=== PATIENT | male | born 1960 | race Caucasian/White ===

== ENCOUNTER 2019-07-16 11:04 | Emergency (ER) | payer BC ==
[~2019-07-16] VITALS: Ht 182.9 cm; Wt 104.3 kg
[2019-07-16 11:04] VITALS: BP 133/96
[2019-07-16] MEDS ORDERED: SULF1TAB24 PO (11:27)
[2019-07-16] MEDS ORDERED: MELO7.5T29 PO (11:27)
--- NOTE | 2019-07-16 11:27 | PHYS DOC ---
Past History Past Medical History: Hypertension Past Surgical History: Cholecystectomy Smoking: Non-smoker Alcohol Use: Heavy Drug Use: None Adult General Chief Complaint Chief Complaint: ABDOMINAL PAIN HPI HPI Patient is a 38-year-old male presents complaining of redness and discomfort just above his bellybutton. This is been present for approximately the past week. Getting worse over time. He ran a fever yesterday but did not take his temperature. There has been some drainage from this area of redness. He is been home treating with Neosporin ointment. Discomfort is waxing and waning, currently mild in intensity. No specific pain medicines have been taken. Patient is approximately 0.5 weeks post the loss of his father. Father from congestive heart failure. Patient is denying any chest pain or pal pitations.[] Review of Systems Review of Systems Constitutional: Denies fever or chills [] Eyes: Denies change in visual acuity, redness, or eye pain [] HENT: Denies nasal congestion or sore throat [] Respiratory: Denies cough or shortness of breath [] Cardiovascular: No chest pain or palpitations[] GI: Denies nausea, vomiting, bloody stools or diarrhea, see history of present illness [] : Denies dysuria or hematuria [] Musculoskeletal: Denies back pain or joint pain [] Integument: The history of present illness[] Neurologic: Denies headache, focal weakness or sensory changes [] Endocrine: Denies polyuria or polydipsia [] All other systems were reviewed and found to be within normal limits, except as documented in this note. Allergies Allergies Allergies Coded Allergies Type Severity Reaction Last Updated Verified No Known Drug Allergies 07/16/19 No Physical Exam Physical Exam Constitutional: Well developed, well nourished, no acute distress, non-toxic appearance. [] HENT: Normocephalic, atraumatic, bilateral external ears normal, oropharynx moist, no oral exudates, nose normal. [] Eyes: PERRLA, EOMI, conjunctiva normal, no discharge. [] Neck: Normal range of motion, no tenderness, supple, no stridor. [] Cardiovascular:Heart rate regular rhythm, no murmur [] Lungs & Thorax: Bilateral breath sounds clear to auscultation [] Abdomen: Bowel sounds normal, soft, no tenderness other than the skin exam noted below, no masses, no pulsatile masses. [] Skin: Warm, dry, erythema and induration superior to patient's umbilicus, approximately 3 cm in diameter for the erythema, 1.5 cm for the induration. There is no drainable abscess appreciated. No discharge. No petechiae, no ulcers.. [] Back: No tenderness, no CVA tenderness. [] Extremities: No tenderness, no cyanosis, no clubbing, ROM intact, no edema. [] Neurologic: Alert and oriented X 3, normal motor function, normal sensory function, no focal deficits noted. [] Psychologic: Affect normal, judgement normal, mood normal. [] EKG EKG [] Radiology/Procedures Radiology/Procedures [] Course & Med Decision Making Course & Med Decision Making Pertinent Labs and Imaging studies reviewed. (See chart for details) ED course: Patient arrived, was placed in bed, and tolerated exam well. Findings were discussed with patient and his who voiced understanding. All question s were answered. He was discharged in improved condition. Medical decision making: Patient appears to have cellulitis. No abscess appreciated. Nontoxic patient. No toxic epidermal necrolysis, no staph scalded skin syndrome, no Sanchez-Ming syndrome.[] Dragon Disclaimer Dragon Disclaimer This electronic medical record was generated, in whole or in part, using a voice recognition dictation system. Departure Departure: Impression: Primary Impression: Cellulitis of abdominal wall Disposition: 01 HOME, SELF-CARE Condition: IMPROVED Referrals: DOLLY MIRZA MD (PCP) Follow-up in 2 days Patient Instructions: Cellulitis Additional Instructions: Follow-up with your regular doctor in 2 days for a wound check. Take medication as prescribed. Apply warm compresses for 15 minutes at a time, at least 4 times a day to the area. Return to the ER if worsening pain, increasing redness, or any other concerns. Scripts Meloxicam (MELOXICAM) 7.5 Mg Tablet 7.5 MG PO DAILY for PAIN, #20 TAB Prov: KETTY OLSEN DO 07/16/19 Sulfamethoxazole/Trimethoprim (BACTRIM DS TABLET) 1 Each Tablet 1 TAB PO BID for CELLULITIS, #20 TAB Prov: KETTY OLSEN DO 07/16/19 KETTY OLSEN DO Jul 16, 2019 11:27
== END 2019-07-16 11:31 | disposition home or self-care (01) ==
LOC: ER 11:04
DX: L03.311 Cellulitis of abdominal wall (principal); I10 Essential (primary) hypertension; F10.20 Alcohol dependence, uncomplicated; Z90.49 Acquired absence of other specified parts of digestive tract; Y90.9 Presence of alcohol in blood, level not specified
CPT/HCPCS: 99283